=== PATIENT | female | born 1930 | race Caucasian/White ===

== ENCOUNTER 2016-08-13 16:31 | Inpatient (IN) | payer OTHER ==
[~2016-08-13] VITALS: Ht 142.2 cm; Wt 50.0 kg
[~2016-08-13 16:31] MED LIST: ADVAIR 100-501 EACH IH; ADVAIR 100/501 DISK IH; ADVAIR 250/501 DISK IH; ADVAIR 500/501 DISK IH; ALBUTEROL SULF8.5 GM IH; ALLEGRA180 MG PO; ALLEGRA30 MG PO; ALTACE2.5 MG PO; ALTOREX150 MG PO; AMLODIPINE BESY10 MG PO; APRESOLINE10 MG PO; ASPIR-LOW81 MG PO; ATORVASTATIN CA40 MG PO; AVAPRO300 MG PO; AVELOX400 MG PO; Advair HFA 115/21 IH; BACTRIM,SEPT1 TABLET PO; BENTYL10 MG PO; BENZONATATE200 MG PO; BISACODYL SUPP10 MG PR; CARAFATE1 GM PO; CARDIZEM CD240 MG PO; CEFTIN500 MG PO; CEPACOL SORE T1 EAC9 MM; CLARITIN10 M3 PO; CLOPIDOGREL75 MG PO; COMPAZINE10 MG PO; CYANOCOBAL1000 MCG/2 IM; CYANOCOBAL1000 MCG/2 SC; DALIRESP500 MCG PO; DEXILANT60 MG PO; DICYCLOMINE HCL10 MG PO; DIFICID200 MG PO; DOCUSATE SODIU100 MG PO; DOXYCYCLINE HY100 M3 PO; DUONEB 2.5-0.5 M3 ML IH; DUONEB3 ML IH; DuoNeb IH; ERGOCALCIF50000 UNIT PO; FERREX 150 FOR1 EACH PO; FERREX 150 PLU1 EACH PO; FERREX 150150 MG PO; FLAGYL500 MG PO; FLONASE16 G1 BOTH NARES; FLORASTOR250 MG PO; FLUCONAZOLE100 MG PO; FUROSEMIDE20 MG PO; GABAPENTIN100 MG PO; GUAIFENESIN600 MG PO; HYDRALAZINE HCL25 MG PO; IMDUR30 MG PO; IPRATR-ALBUTEROL3 ML IH; ISOSORBIDE MONO30 MG PO; Imdur PO; Imodium PO; K-DUR10 ME2 PO; K-DUR10 MEQ PO; K-TAB10 MEQ PO; KLOR-CON 1010 ME1 PO; LASIX10 MG PO; LASIX20 MG PO; LEVAQUIN500 MG PO; LEVAQUIN750 MG PO; LEVSIN0.125 MG PO; LIDOCAINE700 MG TD; LIDODERM 5% P1 PATCH TD; LIPITOR; LIPITOR40 MG PO; LISINOPRIL10 MG PO; LISINOPRIL20 MG PO; LISINOPRIL40 MG PO; LOPERAMIDE2 M1 PO; LOPERAMIDE2 MG PO; LOPRESSOR100 M1 PO; LOPRESSOR25 MG PO; LOPRESSOR50 MG PO; LORATADINE10 M2 PO; Lasix PO; Levaquin PO; Lipitor PO; Lopressor PO; MAALOX ADVANCE355 ML PO; MAXAIR AUTOHALE14 GM IH; MAXAIR AUTOHALER IH; MAXAIR IH; METOCLOPRAMIDE10 MG PO; METOPROLOL SUCC50 MG PO; METOPROLOL TAR100 MG PO; METOPROLOL TART50 MG PO; METRONIDAZOLE500 MG PO; MICRO-K10 ME2 PO; MONTELUKAST SOD10 MG PO; MUCINEX D ER T1 EACH PO; MUCINEX1200 MG PO; MUCINEX600 MG PO; Micro-K,K-Tab,K-Dur, PO; Monistat 7 VG; NABI650T PO; NASONEX17 GM BOTH NARES; NASONEX17 GM NS; NEURONTIN100 MG PO; NEXIUM40 MG PO; NITROSTAT0.4 MG SL; NORVASC10 MG PO; NYSTATIN100000 UN1 PO; Neurontin PO; PLAVIX75 MG PO; POTASSIUM CHLO10 ME3 PO; PREDNISONE PO; PREDNISONE10 MG PO; PREDNISONE20 MG PO; PRINIVIL5 MG PO; PROTONIX40 MG PO; PROVENTIL,2.5 MG/3 M IH; Plavix PO; RANITIDINE HCL150 M1 PO; RANITIDINE HCL150 MG PO; Remove Lidoderm Patch TD; SERTRALINE HCL100 MG PO; SINGULAIR10 MG PO; SODIUM BICARBO325 MG PO; SPIRIVA RESPIMAT4 GM IH; SPIRIVA1 INHALATI IH; SUCRALFATE1 GM PO; Sodium Bicarbonate PO; TRAMADOL HCL50 MG PO; TYLENOL REGULA325 MG PO; TYLENOL WITH C1 EACH PO; ULTRAM ER100 MG PO; ULTRAM50 MG PO; Ultram PO; VANCOMYCIN HCL125 MG PO; VANCOMYCIN125 MG/2.5 PO; VENTOLIN HFA18 GM IH; VIBRAMYCIN100 MG PO; VITAMIN D2000 INTUN PO; VITAMIN D2000 UNIT PO; VITAMIN D22000 UNIT PO; VYTORIN 10-401 EACH PO; ZANTAC150 MG PO; ZETIA10 MG PO; ZITHROMAX Z-PA250 MG PO; ZITHROMAX500 MG PO; ZOLOFT100 M1 PO; ZOLOFT100 MG PO; ZOLOFT50 MG PO; ZYRTEC10 M2 PO; ZYRTEC10 M3 PO; Zestril,Prinivil PO; Zoloft PO
[2016-08-13 17:51] LABS: HEMATOCRIT 34.4 % (36.0-46.0); MCH 28.8 PG (29.0-34.0); MCHC 31.1 G/DL (30.0-36.0); MCV 92.7 FL (83-99); MEAN PLAT.VOLUME 9.9 uM^3 (9.5-12.4); PLATELET COUNT 209 K/uL (156-360); RBC DIS.WIDTH-CV 14.3 % (11.8-14.6); RBC DIS.WIDTH-SD 46.2 % (39-53); RED BLOOD COUNT 3.71 M/uL (3.80-5.20); WHITE BLOOD COUNT 10.4 K/uL (4.1-10.2)
[2016-08-13 17:53] LABS: CARBON DIOXIDE (BICARBONATE) 23.6 MEQ/L (20-31)
[2016-08-13 18:02] LABS: CHLORIDE 110 mEq/L (99-109); POTASSIUM 3.4 mEq/L (3.7-5.4); SODIUM 147 mEq/L (136-147)
[2016-08-13 18:04] LABS: GLUCOSE 156 mg/dL (70-99)
[2016-08-13 18:05] LABS: ANION GAP 19 MEQ/L (2-14)
[2016-08-13 18:08] LABS: GFR ESTIMATE (CALCULATED) 23 mL/min/
[2016-08-13 18:09] LABS: UREA NITROGEN (BUN) 31 mg/dL (9-23)
[2016-08-13 18:11] LABS: TROP-I INTERPRETATION NEGATIVE; TROPONIN-I 0.06 ng/mL (0.0-0.30)
[2016-08-13] MEDS ORDERED: DALIRESP500 MCG PO (19:20)
[2016-08-13] MEDS ORDERED: LORCET 5-325 M1 EACH PO (19:22)
[2016-08-13] MEDS ORDERED: LEVSIN0.125 MG PO (19:23)
[2016-08-13] MEDS ORDERED: IPRATROPIUM BRO30 ML BOTH NARES (19:24)
[2016-08-13] MEDS ORDERED: ZYRTEC10 M2 PO (19:24)
[2016-08-13] MEDS ORDERED: ZANTAC150 MG PO (19:24)
[2016-08-13 21:34] VITALS: BP 186/77
[2016-08-13 23:01] VITALS: BP 157/71
[2016-08-14 04:43] VITALS: BP 131/61
[2016-08-14 05:51] LABS: ANION GAP 8 MEQ/L (2-14); CHLORIDE 116 MEQ/L (99-109); GFR ESTIMATE (CALCULATED) 24 mL/min/; GLUCOSE 117 mg/dL (70-99); SAMPLE HEMOLYSIS CHECK 0; SAMPLE ICTERIC CHECK 0; SAMPLE LIPEMIA CHECK 0; SODIUM 145 MEQ/L (136-147); UREA NITROGEN (BUN) 32 mg/dL (9-23)
[2016-08-14 05:52] LABS: POTASSIUM 5.7 MEQ/L (3.7-5.4)
[2016-08-14 06:07] LABS: EOSINOPHIL (%) 0.1 % (0-5); HEMATOCRIT 26.1 % (36.0-46.0); IMMATURE GRANULOCYTE (%) 0.3 % (0.0-0.7); LYMPHOCYTE COUNT 0.7 K/uL (1.0-2.8); MCH 28.8 PG (29.0-34.0); MCHC 30.7 G/DL (30.0-36.0); MCV 93.9 FL (83-99); MEAN PLAT.VOLUME 10.1 uM^3 (9.5-12.4); MONOCYTE (%) 8.7 % (3-12); MONOCYTE COUNT 0.9 K/uL (0-0.8); NEUTROPHIL (%) 84.2 % (45-76); NEUTROPHIL COUNT 9.1 K/uL (1.8-6.4); PLATELET COUNT 186 K/uL (156-360); RBC DIS.WIDTH-CV 14.7 % (11.8-14.6); RBC DIS.WIDTH-SD 50.6 % (39-53); WHITE BLOOD COUNT 10.8 K/uL (4.1-10.2)
[2016-08-14 06:12] LABS: RED BLOOD COUNT 2.76 M/uL (3.80-5.20)
[2016-08-14 06:48] LABS: METH RESISTANT S AUREUS PCR NEGATIVE (NEGATIVE)
[2016-08-14 06:52] LABS: PROBE CHECK PASS; SPECIMEN PROCESSING CONTROL PASS
[2016-08-14 07:40] LABS: INTERNAL CONTROL VALID? YES
[2016-08-14 08:18] VITALS: BP 147/73
[2016-08-14 11:39] VITALS: BP 133/62
[2016-08-14 16:23] VITALS: BP 144/65
[2016-08-14 20:30] VITALS: BP 165/70
[2016-08-15 00:06] VITALS: BP 143/67
[2016-08-15 04:22] VITALS: BP 164/71
[2016-08-15 06:52] LABS: EOSINOPHIL (%) 0.5 % (0-5); HEMATOCRIT 24.4 % (36.0-46.0); IMMATURE GRANULOCYTE (%) 0.5 % (0.0-0.7); MCH 28.6 PG (29.0-34.0); MCHC 30.7 G/DL (30.0-36.0); MCV 93.1 FL (83-99); MEAN PLAT.VOLUME 10.3 uM^3 (9.5-12.4); MONOCYTE (%) 6.5 % (3-12); MONOCYTE COUNT 0.5 K/uL (0-0.8); NEUTROPHIL (%) 79.9 % (45-76); NEUTROPHIL COUNT 6.1 K/uL (1.8-6.4); PLATELET COUNT 178 K/uL (156-360); RED BLOOD COUNT 2.62 M/uL (3.80-5.20); WHITE BLOOD COUNT 7.6 K/uL (4.1-10.2)
[2016-08-15 07:13] LABS: ANION GAP 9 MEQ/L (2-14); CHLORIDE 114 MEQ/L (99-109); GFR ESTIMATE (CALCULATED) 20 mL/min/; GLUCOSE 104 mg/dL (70-99); POTASSIUM 4.8 MEQ/L (3.7-5.4); SAMPLE HEMOLYSIS CHECK 0; SAMPLE ICTERIC CHECK 0; SAMPLE LIPEMIA CHECK 0; SODIUM 143 MEQ/L (136-147); UREA NITROGEN (BUN) 35 mg/dL (9-23)
[2016-08-15 08:51] LABS: IRON 53 MCG/DL (35-150)
[2016-08-15 09:00] VITALS: BP 135/67
[2016-08-15 11:30] VITALS: BP 114/61
[2016-08-15 16:00] VITALS: BP 139/79
[2016-08-15 19:30] VITALS: BP 190/75
[2016-08-16 00:42] VITALS: BP 150/67
[2016-08-16 05:21] VITALS: BP 148/65
[2016-08-16 07:50] VITALS: BP 185/77
[2016-08-16 12:03] VITALS: BP 149/62
[2016-08-16 16:45] VITALS: BP 137/63
[2016-08-16 20:30] VITALS: BP 199/90
[2016-08-16 23:54] LABS: INFLUENZA A VIRAL ANTIGEN NEGATIVE; INFLUENZA B VIRAL ANTIGEN NEGATIVE
[2016-08-17 00:24] VITALS: BP 170/74
[2016-08-17 05:30] VITALS: BP 171/72
[2016-08-17 06:58] LABS: HEMATOCRIT 27.2 % (36.0-46.0); MCH 28.3 PG (29.0-34.0); MCHC 30.9 G/DL (30.0-36.0); MCV 91.6 FL (83-99); RBC DIS.WIDTH-CV 14.8 % (11.8-14.6); RBC DIS.WIDTH-SD 49.6 % (39-53); RED BLOOD COUNT 2.97 M/uL (3.80-5.20); WHITE BLOOD COUNT 6.3 K/uL (4.1-10.2)
[2016-08-17 08:05] LABS: BASOPHIL COUNT 0.1 K/uL (0-0.1); EOSINOPHIL (%) 1.8 % (0-5); EOSINOPHIL COUNT 0.1 K/uL (0-0.3); IMMATURE GRANULOCYTE (%) 3.5 % (0.0-0.7); IMMATURE GRANULOCYTE COUNT 0.2 K/uL; MEAN PLAT.VOLUME 11.2 uM^3 (9.5-12.4); MONOCYTE (%) 11.8 % (3-12); MONOCYTE COUNT 0.7 K/uL (0-0.8); NEUTROPHIL (%) 66.3 % (45-76); NEUTROPHIL COUNT 4.2 K/uL (1.8-6.4); PLATELET COUNT 190 K/uL (156-360)
[2016-08-17 08:06] LABS: HEMATOLOGY COMMENT 1 SMEAR COMPATIBLE; PLAT.SUFFICIENCY ADEQUATE; USER ID SDF
[2016-08-17 08:45] VITALS: BP 188/90
[2016-08-17 12:31] VITALS: BP 173/75
[2016-08-17 13:12] LABS: C DIFF TOXIN NEGATIVE (NEGATIVE); PROBE CHECK PASS; SPECIMEN PROCESSING CONTROL PASS
[2016-08-17 16:45] VITALS: BP 150/72
[2016-08-17 20:00] VITALS: BP 180/78
[2016-08-18] VITALS (7 sets, daily range): BP systolic 160–194; BP diastolic 54–86
[2016-08-19 04:20] VITALS: BP 184/83
[2016-08-19 08:43] VITALS: BP 160/68
[2016-08-19 11:51] VITALS: BP 170/74
[2016-08-19 12:05] LABS: MCHC 31.5 G/DL (30.0-36.0); MCV 91.9 FL (83-99); MEAN PLAT.VOLUME 10.3 uM^3 (9.5-12.4); PLATELET COUNT 218 K/uL (156-360); RBC DIS.WIDTH-CV 14.7 % (11.8-14.6); RBC DIS.WIDTH-SD 48.9 % (39-53); RED BLOOD COUNT 2.83 M/uL (3.80-5.20)
[2016-08-19 12:27] LABS: ALKALINE PHOSPHATASE 59 IU/L (3-129); ANION GAP 10 MEQ/L (2-14); CHLORIDE 108 MEQ/L (99-109); GFR ESTIMATE (CALCULATED) 30 mL/min/; GLUCOSE 124 mg/dL (70-99); POTASSIUM 3.9 MEQ/L (3.7-5.4); SAMPLE HEMOLYSIS CHECK 0; SAMPLE ICTERIC CHECK 0; SAMPLE LIPEMIA CHECK 0; SODIUM 139 MEQ/L (136-147); TOTAL BILIRUBIN 0.2 MG/DL (0.0-1.0); UREA NITROGEN (BUN) 27 mg/dL (9-23)
[2016-08-19 13:42] LABS: MAGNESIUM 1.8 mg/dl (1.3-2.7)
[2016-08-19 17:00] VITALS: BP 172/89
[2016-08-19 19:27] VITALS: BP 178/93
[2016-08-19 23:43] VITALS: BP 169/84
[2016-08-20 04:18] VITALS: BP 167/81
[2016-08-20 06:48] LABS: HEMATOCRIT 28.8 % (36.0-46.0); MCH 28.5 PG (29.0-34.0); MCHC 30.6 G/DL (30.0-36.0); MCV 93.2 FL (83-99); MEAN PLAT.VOLUME 10.4 uM^3 (9.5-12.4); PLATELET COUNT 235 K/uL (156-360); RBC DIS.WIDTH-CV 14.9 % (11.8-14.6); RBC DIS.WIDTH-SD 49.8 % (39-53); RED BLOOD COUNT 3.09 M/uL (3.80-5.20); WHITE BLOOD COUNT 6.3 K/uL (4.1-10.2)
[2016-08-20 07:15] LABS: ANION GAP 11 MEQ/L (2-14); CHLORIDE 108 MEQ/L (99-109); GFR ESTIMATE (CALCULATED) 28 mL/min/; GLUCOSE 102 mg/dL (70-99); POTASSIUM 3.9 MEQ/L (3.7-5.4); SAMPLE HEMOLYSIS CHECK 0; SAMPLE ICTERIC CHECK 0; SAMPLE LIPEMIA CHECK 0; SODIUM 139 MEQ/L (136-147); UREA NITROGEN (BUN) 31 mg/dL (9-23)
[2016-08-20 08:00] VITALS: BP 180/75
[2016-08-20 08:06] LABS: ABS NEUTROPHIL COUNT 4.81; ANISOCYTOSIS 1+; EOSINOPHIL COUNT 0.2 K/uL (0-0.3); IMMATURE GRANULOCYTE (%) 5.1 % (0.0-0.7); IMMATURE GRANULOCYTE COUNT 0.3 K/uL; LYMPHOCYTE COUNT 1.3 K/uL (1.0-2.8); MACROCYTES 1+; MONOCYTE (%) 8.5 % (3-12); MONOCYTE COUNT 0.5 K/uL (0-0.8); NEUTROPHIL (%) 62.7 % (45-76); OVALOCYTES 1+; PLAT.SUFFICIENCY ADEQUATE; USER ID CCL
[2016-08-20] MEDS ORDERED: CEFDINIR300 MG PO (11:10)
[2016-08-20] MEDS ORDERED: HYDROCODON-ACE1 EAC7 PO (13:49)
== END 2016-08-20 14:02 | DRG 871 ==
LOC: EME 16:31 → EDOF 19:43 → 4EAST 19:43
PROVIDERS: Emergency Medicine; Family Medicine; Hospitalist; Internal Medicine
DX: A41.9 Sepsis, unspecified organism (principal); R65.20 Severe sepsis without septic shock; J44.0 Chronic obstructive pulmonary disease with (acute) lower respiratory infection; J96.01 Acute respiratory failure with hypoxia; J18.9 Pneumonia, unspecified organism; N17.9 Acute kidney failure, unspecified; E87.2 Acidosis; I47.2 Ventricular tachycardia; E86.0 Dehydration; I12.9 Hypertensive chronic kidney disease with stage 1 through stage 4 chronic kidney disease, or unspecified chronic kidney disease; N18.3 Chronic kidney disease, stage 3 (moderate); E78.5 Hyperlipidemia, unspecified; I25.10 Atherosclerotic heart disease of native coronary artery without angina pectoris; I27.2 Other secondary pulmonary hypertension; E87.6 Hypokalemia; D64.9 Anemia, unspecified; R33.9 Retention of urine, unspecified; E53.8 Deficiency of other specified B group vitamins; Z95.5 Presence of coronary angioplasty implant and graft; Z87.891 Personal history of nicotine dependence; Z88.0 Allergy status to penicillin
CPT/HCPCS: 71020; 78582; 80048; 80053; 80069; 82272; 82803; 83540; 83605; 83735; 83880; 84466; 84484; 85025; 85027; 87040; 87070; 87081; 87205; 87449; 87493; 87502; 87641; 92610 GN; 93005; 94640; 94640 76; 94799; 97530 GP; 99202; 99281; 99285; A9540; A9567; J0456; J0696; J0881; J1644; J1956; J2405; J7030; J7040; J7050; J7644

== ENCOUNTER 2016-09-01 11:43 | Emergency (ER) | payer OTHER ==
[~2016-09-01] VITALS: Ht 152.4 cm; Wt 44.4 kg
[~2016-09-01 11:43] MED LIST changes: +CEFDINIR300 MG PO; +HYDROCODON-ACE1 EAC7 PO; +IPRATROPIUM BRO30 ML BOTH NARES; +LORCET 5-325 M1 EACH PO
[2016-09-01 12:40] LABS: BASOPHIL COUNT 0.1 K/uL (0-0.1); EOSINOPHIL (%) 1.9 % (0-5); EOSINOPHIL COUNT 0.1 K/uL (0-0.3); HEMATOCRIT 32.2 % (36.0-46.0); IMMATURE GRANULOCYTE COUNT 0.6 K/uL; LYMPHOCYTE COUNT 1.1 K/uL (1.0-2.8); MCH 29.6 PG (29.0-34.0); MCHC 31.4 G/DL (30.0-36.0); MCV 94.4 FL (83-99); MEAN PLAT.VOLUME 9.8 uM^3 (9.5-12.4); MONOCYTE (%) 5.7 % (3-12); MONOCYTE COUNT 0.4 K/uL (0-0.8); NEUTROPHIL (%) 72.1 % (45-76); NEUTROPHIL COUNT 4.4 K/uL (1.8-6.4); PLATELET COUNT 266 K/uL (156-360); RBC DIS.WIDTH-CV 15.3 % (11.8-14.6); RBC DIS.WIDTH-SD 50.8 % (39-53); WHITE BLOOD COUNT 6.2 K/uL (4.1-10.2)
[2016-09-01 12:46] LABS: RED BLOOD COUNT 3.41 M/uL (3.80-5.20)
[2016-09-01 13:04] LABS: ANION GAP 13 MEQ/L (2-14); CHLORIDE 106 MEQ/L (99-109); POTASSIUM 3.8 MEQ/L (3.7-5.4); SAMPLE HEMOLYSIS CHECK 0; SAMPLE ICTERIC CHECK 0; SAMPLE LIPEMIA CHECK 0; SODIUM 141 MEQ/L (136-147); TOTAL BILIRUBIN 0.3 MG/DL (0.0-1.0)
[2016-09-01 13:09] LABS: ALKALINE PHOSPHATASE 80 IU/L (3-129); GFR ESTIMATE (CALCULATED) 35 mL/min/; GLUCOSE 101 mg/dL (70-99); UREA NITROGEN (BUN) 18 mg/dL (9-23)
[2016-09-01] MEDS ORDERED: BREO ELLIPTA 21 EACH IH (14:57)
[2016-09-01] MEDS ORDERED: FLORASTOR250 MG PO (15:01)
[2016-09-01] MEDS ORDERED: LORATADINE10 M2 PO (15:02)
[2016-09-01] MEDS ORDERED: CYANOCOBALAM1000 MCG PO (15:03)
[2016-09-01] MEDS ORDERED: LORCET 5-325 M1 EACH PO ×2 (15:04→15:18)
[2016-09-01] MEDS ORDERED: DUONEB 2.5-0.5 M3 ML AEROSOL (15:04)
[2016-09-01 18:26] VITALS: BP 126/74
== END 2016-09-01 18:26 ==
LOC: EME 11:43
PROVIDERS: Emergency Medicine
DX: R19.7 Diarrhea, unspecified (principal); I10 Essential (primary) hypertension; N18.9 Chronic kidney disease, unspecified; I13.0 Hypertensive heart and chronic kidney disease with heart failure and stage 1 through stage 4 chronic kidney disease, or unspecified chronic kidney disease; I50.9 Heart failure, unspecified; J43.9 Emphysema, unspecified; J44.9 Chronic obstructive pulmonary disease, unspecified; J45.909 Unspecified asthma, uncomplicated; Z95.5 Presence of coronary angioplasty implant and graft; Z87.891 Personal history of nicotine dependence; Z88.0 Allergy status to penicillin; Z88.6 Allergy status to analgesic agent; Z88.8 Allergy status to other drugs, medicaments and biological substances
CPT/HCPCS: 71010; 74176; 80053; 85025; 93005; 94640; 99281; 99285; J1940; J2060; J7030

== ENCOUNTER 2016-09-06 13:09 | Inpatient (IN) | payer OTHER ==
[~2016-09-06] VITALS: Ht 152.4 cm; Wt 46.9 kg
[~2016-09-06 13:09] MED LIST changes: +BREO ELLIPTA 21 EACH IH; +CYANOCOBALAM1000 MCG PO; +DUONEB 2.5-0.5 M3 ML AEROSOL
[2016-09-06 14:14] LABS: BASOPHIL COUNT 0.1 K/uL (0-0.1); EOSINOPHIL (%) 3.2 % (0-5); EOSINOPHIL COUNT 0.2 K/uL (0-0.3); HEMATOCRIT 30.7 % (36.0-46.0); IMMATURE GRANULOCYTE (%) 0.3 % (0.0-0.7); IMMATURE GRANULOCYTE COUNT 0.2 K/uL; LYMPHOCYTE COUNT 1.1 K/uL (1.0-2.8); MCH 29.1 PG (29.0-34.0); MCHC 30.6 G/DL (30.0-36.0); MONOCYTE (%) 7.1 % (3-12); MONOCYTE COUNT 0.5 K/uL (0-0.8); NEUTROPHIL COUNT 4.8 K/uL (1.8-6.4); PLATELET COUNT 219 K/uL (156-360); RBC DIS.WIDTH-CV 15.4 % (11.8-14.6); RBC DIS.WIDTH-SD 50.8 % (39-53); RED BLOOD COUNT 3.23 M/uL (3.80-5.20); WHITE BLOOD COUNT 6.6 K/uL (4.1-10.2)
[2016-09-06 14:28] LABS: CHLORIDE 113 mEq/L (99-109); POTASSIUM 3.8 mEq/L (3.7-5.4); SODIUM 147 mEq/L (136-147)
[2016-09-06 14:29] LABS: MAGNESIUM 2.1 mg/dL (1.3-2.7)
[2016-09-06 14:30] LABS: GLUCOSE 102 mg/dL (70-99); INTER. NORMALIZED RATIO 1.1; PROTHROMBIN TIME 10.7 (9.2-11.2)
[2016-09-06 14:31] LABS: ANION GAP 11 MEQ/L (2-14)
[2016-09-06 14:34] LABS: GFR ESTIMATE (CALCULATED) 28 mL/min/
[2016-09-06 14:35] LABS: UREA NITROGEN (BUN) 21 mg/dL (9-23)
[2016-09-06 14:41] LABS: TROP-I INTERPRETATION NEGATIVE; TROPONIN-I 0.19 ng/mL (0.0-0.30)
[2016-09-06] MEDS ORDERED: BREO ELLIPTA 21 EACH IH (16:18)
[2016-09-06] MEDS ORDERED: CARDIZEM CD240 MG PO (16:19)
[2016-09-06] MEDS ORDERED: ERGOCALCIF50000 UNIT PO (16:20)
[2016-09-06] MEDS ORDERED: DALIRESP500 MCG PO (16:20)
[2016-09-06] MEDS ORDERED: IMDUR30 MG PO (16:21)
[2016-09-06] MEDS ORDERED: LORATADINE10 M2 PO (16:21)
[2016-09-06] MEDS ORDERED: FLONASE16 G1 BOTH NARES (16:21)
[2016-09-06] MEDS ORDERED: FLORASTOR250 MG PO (16:21)
[2016-09-06] MEDS ORDERED: SINGULAIR10 MG PO (16:22)
[2016-09-06] MEDS ORDERED: NABI650T PO (16:22)
[2016-09-06] MEDS ORDERED: CYANOCOBALAM1000 MCG PO (16:22)
[2016-09-06] MEDS ORDERED: LORCET 5-325 M1 EACH PO (16:23)
[2016-09-06] MEDS ORDERED: DUONEB 2.5-0.5 M3 ML AEROSOL ×2 (16:23→16:27)
[2016-09-06] MEDS ORDERED: ZOLOFT100 MG PO (16:23)
[2016-09-06] MEDS ORDERED: ADVAIR 500/501 DISK IH (16:23)
[2016-09-06] MEDS ORDERED: METOPROLOL TAR100 MG PO (16:24)
[2016-09-06] MEDS ORDERED: RANITIDINE HCL150 MG PO (16:24)
[2016-09-06] MEDS ORDERED: IPRATROPIUM BRO30 ML BOTH NARES (16:25)
[2016-09-06] MEDS ORDERED: HYDRALAZINE HCL25 MG PO (16:25)
[2016-09-06] MEDS ORDERED: DULCOLAX10 MG PR (16:26)
[2016-09-06] MEDS ORDERED: CLONIDINE HCL0.1 MG PO (16:26)
[2016-09-06] MEDS ORDERED: LEVSIN0.125 MG PO (16:27)
[2016-09-06] MEDS ORDERED: TYLENOL REGULA325 MG PO (16:28)
[2016-09-06] MEDS ORDERED: PHILLIPS'400 MG/5 M PO (16:28)
[2016-09-06] MEDS ORDERED: MIRALAX255 GM PO (16:28)
[2016-09-06] MEDS ORDERED: NITROSTAT0.4 MG SL (16:30)
[2016-09-06 20:00] VITALS: BP 152/60
[2016-09-06 20:51] VITALS: BP 184/79
[2016-09-06 22:29] LABS: TROP-I INTERPRETATION NEGATIVE; TROPONIN-I 0.19 ng/mL (0.0-0.30)
[2016-09-07 03:30] VITALS: BP 180/80
[2016-09-07 04:00] VITALS: BP 126/68
[2016-09-07 08:37] VITALS: BP 170/78
[2016-09-07 11:37] LABS: TROP-I INTERPRETATION NEGATIVE; TROPONIN-I 0.13 ng/mL (0.0-0.30)
[2016-09-07 11:53] VITALS: BP 190/100
[2016-09-07 15:58] VITALS: BP 182/84
[2016-09-08] VITALS: BP 128/80
[2016-09-08 04:50] VITALS: BP 185/84
[2016-09-08 06:28] LABS: ANION GAP 9 MEQ/L (2-14); CHLORIDE 111 MEQ/L (99-109); GFR ESTIMATE (CALCULATED) 33 mL/min/; GLUCOSE 90 mg/dL (70-99); POTASSIUM 3.6 MEQ/L (3.7-5.4); SAMPLE HEMOLYSIS CHECK 0; SAMPLE ICTERIC CHECK 0; SAMPLE LIPEMIA CHECK 0; SODIUM 145 MEQ/L (136-147); UREA NITROGEN (BUN) 20 mg/dL (9-23)
[2016-09-08 08:06] VITALS: BP 191/91
[2016-09-08 09:19] LABS: HEMATOCRIT 29.6 % (36.0-46.0); MCH 28.7 PG (29.0-34.0); MCHC 30.4 G/DL (30.0-36.0); MCV 94.3 FL (83-99); MEAN PLAT.VOLUME 10.6 uM^3 (9.5-12.4); PLATELET COUNT 191 K/uL (156-360); RBC DIS.WIDTH-CV 15.3 % (11.8-14.6); RBC DIS.WIDTH-SD 52.6 % (39-53); RED BLOOD COUNT 3.14 M/uL (3.80-5.20); WHITE BLOOD COUNT 4.7 K/uL (4.1-10.2)
[2016-09-08 09:40] LABS: ANION GAP 11 MEQ/L (2-14); CHLORIDE 111 MEQ/L (99-109); GFR ESTIMATE (CALCULATED) 35 mL/min/; GLUCOSE 97 mg/dL (70-99); POTASSIUM 3.3 MEQ/L (3.7-5.4); SAMPLE HEMOLYSIS CHECK 0; SAMPLE ICTERIC CHECK 0; SAMPLE LIPEMIA CHECK 0; SODIUM 145 MEQ/L (136-147); UREA NITROGEN (BUN) 19 mg/dL (9-23)
[2016-09-08 11:55] VITALS: BP 165/75
[2016-09-08 15:58] VITALS: BP 165/70
[2016-09-08 18:33] LABS: TROP-I INTERPRETATION NEGATIVE
[2016-09-08 20:05] VITALS: BP 191/79
[2016-09-09] VITALS (9 sets, daily range): BP systolic 148–198; BP diastolic 68–94
[2016-09-09 01:00] LABS: TROP-I INTERPRETATION NEGATIVE; TROPONIN-I 0.12 ng/mL (0.0-0.30)
[2016-09-09 09:46] LABS: TROP-I INTERPRETATION NEGATIVE; TROPONIN-I 0.07 ng/mL (0.0-0.30)
[2016-09-09 16:30] LABS: TROP-I INTERPRETATION NEGATIVE; TROPONIN-I 0.09 ng/mL (0.0-0.30)
[2016-09-10 00:54] VITALS: BP 164/79
[2016-09-10 05:01] VITALS: BP 182/82
[2016-09-10 08:00] VITALS: BP 173/64
[2016-09-10 09:56] LABS: HEMATOCRIT 29.2 % (36.0-46.0); MCH 28.5 PG (29.0-34.0); MCHC 30.1 G/DL (30.0-36.0); MCV 94.5 FL (83-99); MEAN PLAT.VOLUME 10.7 uM^3 (9.5-12.4); PLATELET COUNT 197 K/uL (156-360); RBC DIS.WIDTH-CV 15.4 % (11.8-14.6); RBC DIS.WIDTH-SD 53.5 % (39-53); RED BLOOD COUNT 3.09 M/uL (3.80-5.20); WHITE BLOOD COUNT 4.2 K/uL (4.1-10.2)
[2016-09-10 10:01] LABS: ANION GAP 9 MEQ/L (2-14); CHLORIDE 114 MEQ/L (99-109); GFR ESTIMATE (CALCULATED) 35 mL/min/; GLUCOSE 88 mg/dL (70-99); POTASSIUM 3.9 MEQ/L (3.7-5.4); SAMPLE HEMOLYSIS CHECK 0; SAMPLE ICTERIC CHECK 0; SAMPLE LIPEMIA CHECK 0; SODIUM 145 MEQ/L (136-147); UREA NITROGEN (BUN) 14 mg/dL (9-23)
[2016-09-10 12:04] VITALS: BP 154/71
[2016-09-10 16:54] VITALS: BP 154/65
[2016-09-10 21:23] VITALS: BP 169/75
[2016-09-11 01:21] VITALS: BP 102/59
[2016-09-11 05:51] VITALS: BP 146/69
[2016-09-11 07:09] LABS: BASOPHIL COUNT 0.1 K/uL (0-0.1); EOSINOPHIL (%) 4.8 % (0-5); EOSINOPHIL COUNT 0.2 K/uL (0-0.3); HEMATOCRIT 28.7 % (36.0-46.0); IMMATURE GRANULOCYTE (%) 0.7 % (0.0-0.7); MCH 29.1 PG (29.0-34.0); MCHC 30.7 G/DL (30.0-36.0); MONOCYTE (%) 8.4 % (3-12); MONOCYTE COUNT 0.4 K/uL (0-0.8); NEUTROPHIL (%) 60.6 % (45-76); NEUTROPHIL COUNT 2.7 K/uL (1.8-6.4); PLATELET COUNT 208 K/uL (156-360); RBC DIS.WIDTH-CV 15.6 % (11.8-14.6); RBC DIS.WIDTH-SD 53.6 % (39-53); RED BLOOD COUNT 3.02 M/uL (3.80-5.20); WHITE BLOOD COUNT 4.4 K/uL (4.1-10.2)
[2016-09-11 07:23] LABS: ALKALINE PHOSPHATASE 55 IU/L (3-129); ANION GAP 10 MEQ/L (2-14); CHLORIDE 114 MEQ/L (99-109); GFR ESTIMATE (CALCULATED) 33 mL/min/; GLUCOSE 84 mg/dL (70-99); POTASSIUM 3.7 MEQ/L (3.7-5.4); SAMPLE HEMOLYSIS CHECK 0; SAMPLE ICTERIC CHECK 0; SAMPLE LIPEMIA CHECK 0; SODIUM 146 MEQ/L (136-147); TOTAL BILIRUBIN 0.3 MG/DL (0.0-1.0); UREA NITROGEN (BUN) 13 mg/dL (9-23)
[2016-09-11 08:16] VITALS: BP 194/89
[2016-09-11 12:16] VITALS: BP 180/79
[2016-09-11 15:00] VITALS: BP 174/74
[2016-09-11 19:06] VITALS: BP 186/81
[2016-09-12 04:23] VITALS: BP 177/86
[2016-09-12 07:10] LABS: BASOPHIL COUNT 0.1 K/uL (0-0.1); EOSINOPHIL (%) 3.5 % (0-5); EOSINOPHIL COUNT 0.2 K/uL (0-0.3); HEMATOCRIT 31.5 % (36.0-46.0); IMMATURE GRANULOCYTE (%) 0.8 % (0.0-0.7); MCH 28.1 PG (29.0-34.0); MCHC 29.8 G/DL (30.0-36.0); MEAN PLAT.VOLUME 10.6 uM^3 (9.5-12.4); MONOCYTE (%) 10.6 % (3-12); MONOCYTE COUNT 0.5 K/uL (0-0.8); NEUTROPHIL (%) 64.6 % (45-76); NEUTROPHIL COUNT 3.3 K/uL (1.8-6.4); PLATELET COUNT 227 K/uL (156-360); RBC DIS.WIDTH-CV 15.5 % (11.8-14.6); RBC DIS.WIDTH-SD 52.7 % (39-53); RED BLOOD COUNT 3.35 M/uL (3.80-5.20); WHITE BLOOD COUNT 5.1 K/uL (4.1-10.2)
[2016-09-12 07:35] LABS: ANION GAP 11 MEQ/L (2-14); CHLORIDE 112 MEQ/L (99-109); GFR ESTIMATE (CALCULATED) 33 mL/min/; GLUCOSE 80 mg/dL (70-99); POTASSIUM 3.6 MEQ/L (3.7-5.4); SAMPLE HEMOLYSIS CHECK 0; SAMPLE ICTERIC CHECK 0; SAMPLE LIPEMIA CHECK 0; SODIUM 145 MEQ/L (136-147); UREA NITROGEN (BUN) 12 mg/dL (9-23)
[2016-09-12 08:30] VITALS: BP 198/89
[2016-09-12 12:45] VITALS: BP 185/78
[2016-09-12 16:32] VITALS: BP 182/78
[2016-09-12 21:00] VITALS: BP 138/63
[2016-09-13 01:00] VITALS: BP 148/78
[2016-09-13 05:30] VITALS: BP 164/78
[2016-09-13 07:21] LABS: HEMATOCRIT 32.9 % (36.0-46.0); MCHC 30.4 G/DL (30.0-36.0); MCV 95.4 FL (83-99); RBC DIS.WIDTH-CV 15.7 % (11.8-14.6); RBC DIS.WIDTH-SD 54.5 % (39-53); RED BLOOD COUNT 3.45 M/uL (3.80-5.20); WHITE BLOOD COUNT 5.7 K/uL (4.1-10.2)
[2016-09-13 07:25] LABS: DELETE MACHINE DIFF? YES
[2016-09-13 07:34] LABS: ANION GAP 12 MEQ/L (2-14); CHLORIDE 115 MEQ/L (99-109); POTASSIUM 4.1 MEQ/L (3.7-5.4); SAMPLE HEMOLYSIS CHECK 0; SAMPLE ICTERIC CHECK 0; SAMPLE LIPEMIA CHECK 0; SODIUM 148 MEQ/L (136-147); TOTAL BILIRUBIN 0.3 MG/DL (0.0-1.0)
[2016-09-13 07:45] LABS: ALKALINE PHOSPHATASE 61 IU/L (3-129); GFR ESTIMATE (CALCULATED) 28 mL/min/; UREA NITROGEN (BUN) 16 mg/dL (9-23)
[2016-09-13 07:47] LABS: GLUCOSE 109 mg/dL (70-99)
[2016-09-13 08:00] VITALS: BP 202/93
[2016-09-13 08:55] LABS: ANISOCYTOSIS 1+; EOSINOPHIL ABS CT 0.06; HYPOCHROMASIA 1+; MACROCYTES OCC; MICROCYTOSIS OCC; OVALOCYTES OCC; TEAR DROP CELLS OCC; USER ID TLW
[2016-09-13 08:57] LABS: PLATELET COUNT UNABLE TO REPORT K/uL (156-360)
[2016-09-13] MEDS ORDERED: AMOX TR-K CLV1 EAC3 PO (10:39)
[2016-09-13] MEDS ORDERED: IMDUR30 MG PO (12:52)
[2016-09-13 12:53] VITALS: BP 189/96
[2016-09-13] MEDS ORDERED: ZOFRAN4 MG PO (12:54)
[2016-09-13] MEDS ORDERED: LIPITOR40 MG PO (14:09)
== END 2016-09-13 17:12 | DRG 178 ==
LOC: EME → EDBD 13:09 → EDOF 15:55 → 5WEST 19:10
PROVIDERS: Emergency Medicine; Hospitalist; Internal Medicine
DX: J69.0 Pneumonitis due to inhalation of food and vomit (principal); J96.11 Chronic respiratory failure with hypoxia; R64 Cachexia; J98.11 Atelectasis; J90 Pleural effusion, not elsewhere classified; N18.4 Chronic kidney disease, stage 4 (severe); I47.2 Ventricular tachycardia; Z66 Do not resuscitate; I12.9 Hypertensive chronic kidney disease with stage 1 through stage 4 chronic kidney disease, or unspecified chronic kidney disease; I25.10 Atherosclerotic heart disease of native coronary artery without angina pectoris; D63.1 Anemia in chronic kidney disease; J44.9 Chronic obstructive pulmonary disease, unspecified; I27.2 Other secondary pulmonary hypertension; J30.2 Other seasonal allergic rhinitis; E78.5 Hyperlipidemia, unspecified; E53.8 Deficiency of other specified B group vitamins; R13.10 Dysphagia, unspecified; K21.9 Gastro-esophageal reflux disease without esophagitis; K44.9 Diaphragmatic hernia without obstruction or gangrene; K57.30 Diverticulosis of large intestine without perforation or abscess without bleeding; G89.29 Other chronic pain; K64.8 Other hemorrhoids; Z68.20 Body mass index [BMI] 20.0-20.9, adult; Z88.6 Allergy status to analgesic agent; Z87.891 Personal history of nicotine dependence; Z88.0 Allergy status to penicillin; Z98.61 Coronary angioplasty status; Z80.0 Family history of malignant neoplasm of digestive organs; Z82.49 Family history of ischemic heart disease and other diseases of the circulatory system
CPT/HCPCS: 71010; 74230; 80048; 80048 91; 80053; 80202; 82565; 82728; 83735; 84484; 85025; 85027; 85610; 85730; 92526 GN; 92610 GN; 92611 GN; 93005; 94640; 94640 76; 94760; 94799; 99202; 99281; 99285; G0378; G8978 GP CM; G8979 CJ; J0692; J1650; J2543; J3370; J7030; J7050; S0030

== ENCOUNTER 2016-09-24 06:52 | Emergency (ER) | payer OTHER ==
[~2016-09-24] VITALS: Ht 152.4 cm; Wt 44.3 kg
[~2016-09-24 06:52] MED LIST changes: +AMOX TR-K CLV1 EAC3 PO; +CLONIDINE HCL0.1 MG PO; +DULCOLAX10 MG PR; +MIRALAX255 GM PO; +PHILLIPS'400 MG/5 M PO; +ZOFRAN4 MG PO
[2016-09-24 07:48] LABS: ADD MIUA? YES; BILIRUBIN NEGATIVE; BLOOD NEGATIVE; COLOR LT YELLOW ((YELLOW)); GLUCOSE (STRIP) NEGATIVE; KETONES NEGATIVE; LEUKOCYTES NEGATIVE; NITRITE NEGATIVE; PROTEIN (STRIP) 100; SPECIFIC GRAVITY 1.017 (1.000-1.030); UROBILINOGEN 0.2 MG/DL (0.2-1.0)
[2016-09-24 07:59] LABS: BACTERIA NONE SEEN /HPF; CASTS NONE SEEN /LPF; CRYSTALS NONE SEEN; EPITHELIAL CELLS RARE /HPF; MUCUS NONE SEEN /LPF; PATHOLOGICAL CAST NONE SEEN; RED BLOOD CELLS 0-5 /HPF (0-5); SMALL ROUND CELL NONE SEEN; UCUL ADDED? NO; WHITE BLOOD CELLS 0-5 /HPF (0-5); YEAST-LIKE CELL NONE SEEN
[2016-09-24 08:02] LABS: CHLORIDE 111 mEq/L (99-109); SODIUM 147 mEq/L (136-147)
[2016-09-24 08:04] LABS: GLUCOSE 97 mg/dL (70-99)
[2016-09-24 08:05] LABS: ANION GAP 10 MEQ/L (2-14)
[2016-09-24 08:08] LABS: GFR ESTIMATE (CALCULATED) 33 mL/min/
[2016-09-24 08:09] LABS: UREA NITROGEN (BUN) 26 mg/dL (9-23)
[2016-09-24 09:37] LABS: BASOPHIL COUNT 0.1 K/uL (0-0.1); EOSINOPHIL (%) 2.4 % (0-5); EOSINOPHIL COUNT 0.2 K/uL (0-0.3); HEMATOCRIT 32.9 % (36.0-46.0); IMMATURE GRANULOCYTE (%) 0.5 % (0.0-0.7); LYMPHOCYTE COUNT 1.2 K/uL (1.0-2.8); MCH 28.7 PG (29.0-34.0); MCHC 30.1 G/DL (30.0-36.0); MCV 95.4 FL (83-99); MONOCYTE (%) 9.1 % (3-12); MONOCYTE COUNT 0.6 K/uL (0-0.8); NEUTROPHIL (%) 67.3 % (45-76); NEUTROPHIL COUNT 4.2 K/uL (1.8-6.4); RBC DIS.WIDTH-CV 15.2 % (11.8-14.6); RED BLOOD COUNT 3.45 M/uL (3.80-5.20); WHITE BLOOD COUNT 6.3 K/uL (4.1-10.2)
[2016-09-24 10:20] LABS: MEAN PLAT.VOLUME 11.1 uM^3 (9.5-12.4); PLAT.SUFFICIENCY ADEQUATE; PLATELET COUNT 228 K/uL (156-360); USER ID TLW
[2016-09-24 11:23] VITALS: BP 165/85
== END 2016-09-24 11:25 ==
LOC: EME 06:52
PROVIDERS: Emergency Medicine
DX: F03.90 Unspecified dementia, unspecified severity, without behavioral disturbance, psychotic disturbance, mood disturbance, and anxiety (principal); R45.1 Restlessness and agitation; J45.909 Unspecified asthma, uncomplicated; J44.9 Chronic obstructive pulmonary disease, unspecified; G89.29 Other chronic pain; I10 Essential (primary) hypertension; Z79.891 Long term (current) use of opiate analgesic; Z87.891 Personal history of nicotine dependence
CPT/HCPCS: 80048; 81003; 85025; 90839; 99281; 99285